=== PATIENT | female | born 1940 | race Caucasian/White ===

== ENCOUNTER → 2020-04-28 12:26 | Outpatient (REF) | payer MEDICARE, BC, MEDICAID, SELFPAY | LOC: OLS.ACW400 12:26 | PROVIDERS: Visit Provider Family Medicine | DX: Z03.818 Encounter for observation for suspected exposure to other biological agents ruled out (principal) | CPT/HCPCS: 87635; U0003 ==

== ENCOUNTER → 2020-05-04 14:06 | Outpatient (REF) | payer MEDICARE, BC, MEDICAID, SELFPAY | LOC: OLS.ACW400 14:06 | PROVIDERS: Referring Provider Family Medicine; Visit Provider Family Medicine | DX: Z03.818 Encounter for observation for suspected exposure to other biological agents ruled out (principal) | CPT/HCPCS: 87635; U0003 ==